=== PATIENT | male | born 1950 | race Caucasian/White ===

== ENCOUNTER → 2017-05-18 | Outpatient (CLI) | payer OTHER | END | disposition home or self-care (01) | LOC: LABWHC1 10:20 | PROVIDERS: ATTEND Physician Assistant | DX: E03.9 Hypothyroidism, unspecified (principal); B18.2 Chronic viral hepatitis C | CPT/HCPCS: 36415; 82172; 82247; 82977; 83010; 83883; 84439; 84443; 84460 ==

== ENCOUNTER 2018-03-30 07:00 | Day surgery (SDC) | payer OTHER ==
[2018-03-28 11:55] VITALS: BMI 33.5
[~2018-03-30 07:00] MED LIST: LACTATED RINGERS 1,000 ML IV SCH
[2018-03-30 08:00] VITALS: TEMP 98.4
[2018-03-30] MEDS ORDERED: LIDOCAINE 1% 20 ML VIAL (10MG/ML) FOR IV START SQ ONE (08:05)
[2018-03-30] MEDS ORDERED: PROPOFOL 10 MG/ML 20 ML VIAL IV ONE (08:42)
[2018-03-30] MEDS ORDERED: LIDOCAINE 1% INJ 10MG/ML (20 ML MDV) ONE (08:42)
--- NOTE | 2018-03-30 09:22 | P.PCN ---
Date of Procedure: 03/30/18 Procedure(s) Performed: Procedure: Colonoscopy and polypectomy. Preoperative diagnosis: Positive occult blood in the stools. Postoperative diagnosis: Multiple small polyps around the hepatic flexure area snared but no large polyps or cancer. Preparation: HalfLytely prep. Sedation: Was provided by anesthesia. Brief clinical history: The patient is a 68-year-old male who is scheduled for this evaluation because of Hemoccult-positive stools. He had a colonoscopy more than 20 years ago. The patient has no abdominal pains, change in bowel habits or overt bleeding. No upper GI complaints. Procedure: With the patient on his left lateral decubitus position and after informed consent and adequate sedation, the perianal area was inspected and it did not show any fissures or fistulas. There were no masses felt on digital rectal examination. The Olympus CFQ 160L scope was then inserted in the rectum in the usual fashion and advanced to the cecum. There were multiple small polyps in the neighborhood of the hepatic flexure which I snared and retrieved by suction but there were no large polyps or cancer. The mucosa appeared healthy. I retroflexed the endoscope in the rectum before the endoscope was withdrawn. Low-grade internal hemorrhoids were noted but there was no evidence of bleeding. The patient tolerated the procedure well. Plan: The patient was reassured. I am recommending repeat exam in 3 years. As far as the Hemoccult-positive stools, consideration can be given for an upper endoscopy if he has upper GI complaints or anemia and that can be considered in the future based on his course. He will follow up with you as planned and we would keep you updated on his progress.
[2018-03-30 09:37] VITALS: BP 158/92; PULSE 70; RESP 14
== END 2018-03-30 10:32 | disposition home or self-care (01) ==
LOC: ORWHC2ENDO 07:00
DX: D12.3 Benign neoplasm of transverse colon (principal); K64.8 Other hemorrhoids; K21.9 Gastro-esophageal reflux disease without esophagitis; I10 Essential (primary) hypertension; E07.9 Disorder of thyroid, unspecified; Z79.890 Hormone replacement therapy; Z79.899 Other long term (current) drug therapy; Z87.891 Personal history of nicotine dependence
CPT/HCPCS: 88305; 45385; J2001; J2704

== ENCOUNTER 2022-12-07 04:16 | Inpatient (IN) | payer OTHER ==
[2022-12-07 04:46] LABS: Glucose,Whole Blood 155 mg/dL (70-110)
[2022-12-07 05:10] LABS: Anisocytosis Moderate; Basophils % (A) 0 %; Eosinophils # (A) 0.1 k/uL (0-0.7); Eosinophils % (A) 1 %; HCT 39.6 % (39.0-53.0); HGB 13.1 gm/dL (13.0-17.5); Lymphocytes # (A) 0.8 k/uL (1.0-4.8); Lymphocytes % (A) 7 %; MCH 29.3 pg (25.0-35.0); MCV 88.9 fL (80.0-100.0); Mean Platelet Volume 8.2; Monocytes % (A) 9 %; Neutrophils % (A) 80 %; Platelet Count 114 k/uL (150-450); Poikilocytosis Slight; RBC 4.45 m/uL (4.30-5.90); WBC 11.2 k/uL (3.8-10.6)
[2022-12-07 05:18] LABS: INR 1.5 (<1.2); Partial Thromboplastin Time 28.3 sec (22.0-30.0); Prothrombin Time 15.4 sec (9.0-12.0)
[2022-12-07 05:24] LABS: ALT 44 U/L (4-49); AST 75 U/L (17-59); Acetaminophen <10.0 ug/mL; African American GFR (CKD) 42 (>60 ml/min/1.73 sqM); Albumin 3.9 g/dL (3.5-5.0); Alcohol <10 mg/dL; Alkaline Phosphatase 173 U/L (38-126); Anion Gap 16 mmol/L; Blood Urea Nitrogen 33 mg/dL (9-20); Calcium 9.3 mg/dL (8.4-10.2); Carbon Dioxide 11 mmol/L (22-30); Chloride 112 mmol/L (98-107); Glucose 145 mg/dL (74-99); Non-African American GFR(CKD) 36 (>60 ml/min/1.73 sqM); Potassium 4.5 mmol/L (3.5-5.1); Salicylate <1.0 mg/dL; Sodium 139 mmol/L (137-145); Total Bilirubin 6.3 mg/dL (0.2-1.3); Total Protein 9.6 g/dL (6.3-8.2)
[2022-12-07] MEDS ORDERED: LACTULOSE 20 GM/30 ML CUP PO ONE (05:54)
--- NOTE | 2022-12-07 07:04 | XR ---
EXAMINATION TYPE: XR chest 1V portable DATE OF EXAM: 12/07/2022 Comparison: None Clinical History: 72-year-old male confusion, altered mental status Findings: Heart mildly enlarged. Low lung volumes with crowded vascular markings. Mild interstitial density. No consolidation or pleural effusion. Impression: Hypoventilatory changes. Mild cardiomegaly. Interstitial prominence could reflect mild pulmonary vasc ular congestion. Clinically correlate.
--- NOTE | 2022-12-07 07:09 | CT ---
EXAMINATION TYPE: CT brain wo con DATE OF EXAM: 12/07/2022 COMPARISON: None HISTORY: 72-year-old male confusion, altered mental status TECHNIQUE: Examination was done in axial plane without intravenous contrast. Coronal and sagittal r econstructions performed. CT DLP: 1312.4 mGycm Automated exposure control for dose reduction was used. FINDINGS: There is no evidence of acute intracranial hemorrhage, acute ischemic changes, mass, mass-effect, or extra-axial fluid collection. There is no effacement of cerebral sulci or basal subarachnoid cister ns. There is no hydrocephalus. There is no midline shift. Muñoz-white matter distinction is preserv ed. Mild age-related bifrontal cerebral cortical volume loss. Mild periventricular white matter hypodensi ties; mild burden of chronic small vessel ischemic disease. Rightward nasal septal deviation. Trace mucosal thickening ethmoid air cells. Atrophy of the intraorb ital fat. Mastoid air cells well pneumatized. IMPRESSION: No acute intracranial abnormality seen. Mild bifrontal atrophy and mild changes of chronic small vess el ischemic disease.
[2022-12-07] MEDS ORDERED: NALOXONE 0.4 MG/ML 1 ML VIAL IV PRN (07:21)
--- NOTE | 2022-12-07 07:21 | ED ---
Altered Mental Status HPI - General Chief Complaint: Altered Mental Status Stated Complaint: VOMITING,ALTERED MENTAL STATUS Time Seen by Provider: 12/07/22 04:30 Source: patient, EMS Mode of arrival: EMS Limitations: no limitations - History of Present Illness Initial Comments: 72-year-old male with past medical history of liver cancer who presents to the emergency department with altered mental status. is at bedside and provides the history. States that the patient follows with an oncologist at [facility]. He was diagnosed with cancer in September. He currently takes an oral chemotherapy pill and lactulose. states that he has been having profuse diarrhea and therefore scaled back his lactulose. He is was to take 15 mL twice a day. She states that she has been giving him 9 mL twice a day for a few days. Today the patient only got 4 mL. He has been confused throughout the course of the day. No falls. He barely ate anything. No fevers. The trachea issues. No other alleviating, precipitating or modifying factors - Related Data Home Medications Medication Instructions Recorded Confirmed Benazepril [Lotensin] 10 mg PO DAILY 12/07/22 12/07/22 Furosemide [Lasix] 40 mg PO DAILY 12/07/22 12/07/22 Lactulose 10 gm PO BID 12/07/22 12/07/22 Lactulose 10 gm PO BID PRN 12/07/22 12/07/22 Lenvatinib Mesylate [Lenvima] 8 mg PO HS@199912/07/22 12/07/22 Levothyroxine Sodium [Synthroid] 125 mcg PO DAILY 12/07/22 12/07/22 Spironolactone [Aldactone] 100 mg PO DAILY 12/07/22 12/07/22 amLODIPine [Norvasc] 5 mg PO DAILY 12/07/22 12/07/22 ondansetron HCL [Zofran] 8 mg PO Q8H PRN 12/07/22 12/07/22 Allergies Allergy/AdvReac Type Severity Reaction Status Date / Time No Known Allergies Allergy Verified 12/07/22 09:46 Review of Systems ROS Statement: Those systems with pertinent positive or pertinent negative responses have been documented in the HPI. ROS Other: All systems not noted in ROS Statement are negative. Past Medical History Past Medical History: GERD/Reflux, Hypertension, Liver Disease, Thyroid Disorder Additional Past Medical History / Comment(s): hemorrhoid, hx pancreatitis, fatty tumors on arms and abdomen, hx hepatitis C (treated 2018) History of Any Multi-Drug Resistant Organisms: None Reported Past Surgical History: Cholecystectomy Additional Past Surgical History / Comment(s): liver biopsy, giselle cataracts, Past Anesthesia/Blood Transfusion Reactions: No Reported Reaction Past Psychological History: Anxiety Smoking Status: Former smoker Past Alcohol Use History: None Reported Past Drug Use History: None Reported - Past Family History Brother(s) Family Medical History: Cancer Sister(s) Family Medical History: Cancer Mother Family Medical History: Cancer General Exam Limitations: altered mental status General appearance: lethargic Head exam: Present: atraumatic, normocephalic, normal inspection Eye exam: Present: scleral icterus ENT exam: Present: mucous membranes dry Respiratory exam: Present: normal lung sounds bilaterally. Absent: respiratory distress, wheezes, rales, rhonchi, stridor Cardiovascular Exam: Present: regular rate, normal rhythm, normal heart sounds. Absent: systolic murmur, diastolic murmur, rubs, gallop, clicks GI/Abdominal exam: Present: soft, normal bowel sounds. Absent: distended, tenderness, guarding, rebound, rigid Neurological exam: Present: altered Skin exam: Present: dry Course Vital Signs 12/07/22 12/07/22 12/07/22 04:26 05:41 07:08 Temperature 97.8 F Pulse Rate 90 89 86 Pulse Rate [ Pulse Oximetery ] Respiratory 18 18 18 Rate Blood Pressure 159/93 147/81 137/76 Blood Pressure [Left Arm] O2 Sat by Pulse 98 99 98 Oximetry 12/07/22 12/07/22 12/07/22 08:00 10:40 11:37 Temperature Pulse Rate 96 89 Pulse Rate [ 92 Pulse Oximetery ] Respiratory 16 20 12 Rate Blood Pressure 149/72 143/73 Blood Pressure 142/77 [Left Arm] O2 Sat by Pulse 98 97 98 Oximetry 12/07/22 12/07/22 12/07/22 18:56 19:25 21:12 Temperature 98.8 F Pulse Rate 101 H 106 H 102 H Pulse Rate [ Pulse Oximetery ] Respiratory 24 34 H 36 H Rate Blood Pressure 132/78 134/76 123/70 Blood Pressure [Left Arm] O2 Sat by Pulse 97 96 99 Oximetry Medical Decision Making - Medical Decision Making Was pt. sent in by a medical professional or institution (, JAMES, TRAILER TRUCK DRIVER, urgent care, hospital, or group home...) When possible be specific @ -No Did you speak to anyone other than the patient for history (EMS, parent, family, police, friend...)? What history was obtained from this source @ - and EMS provide history Did you review nursing and triage notes (agree or disagree)? Why? @ -I reviewed and agree with nursing and triage notes Were old charts reviewed (outside hosp., previous admission, EMS record, old EKG, old radiological studies, urgent care reports/EKG's, group home records)? Report findings @ -No old charts were reviewed Differential Diagnosis (chest pain, altered mental status, abdominal pain women, abdominal pain men, vaginal bleeding, weakness, fever, dyspnea, syncope, headache, dizziness, GI bleed, back pain, seizure, CVA, palpatations, mental health, musculoskeletal)? @ -UTI, ICH, cerebral edema, hyperammonemia EKG interpreted by me (3pts min.). @ -Yes and demonstrates sinus rhythm with a rate of 84. LA interval 240. QRS 103. QTC of 447. No acute ST segment elevations or depressions X-rays interpreted by me (1pt min.). @ -yes, hypoventilation CT interpreted by me (1pt min.). @ -yes, no acute process U/S interpreted by me (1pt. min.). @ -None done What testing was considered but not performed or refused? (CT, X-rays, U/S, labs)? Why? @ -None What meds were considered but not given or refused? Why? @ -None Did you discuss the management of the patient with other professionals (professionals i.e. , JAMES, TRAILER TRUCK DRIVER, lab, RT, psych nurse, social media specialist, recreation aide, teacher, code enforcement officer, insurance case manager)? Give summary @ -Dr. Kan Was smoking cessation discussed for >3mins.? @ -No Was critical care preformed (if so, how long)? @ -No Were there social determinants of health that impacted care today? How? (Homelessness, low income, unemployed, alcoholism, drug addiction, transportation, low edu. Level, literacy, decrease access to med. care, long term, rehab)? @ -No Was there de-escalation of care discussed even if they declined (Discuss DNR or withdrawal of care, Hospice)? DNR status @ -Spoke with - patient requested to be DNR therefore code status is changed. Informed her that with significant hyperammonemia, patients sometimes need dialysis. She states that the patient would have never wanted that What co-morbidities impacted this encounter? (DM, HTN, Smoking, COPD, CAD, Cancer, CVA, ARF, Chemo, Hep., AIDS, mental health diagnosis, sleep apnea, morbid obesity)? @ -liver cancer Was patient admitted / discharged? Hospital course, mention meds given and route, prescriptions, significant lab abnormalities, going to OR and other pertinent info. @ -Upon arrival patient is placed in room 16. Thorough history and physical exam is performed. IV access established laboratory studies were conducted. Ammonia is 316. CT of the brain demonstrates no acute process. Chest x-ray demonstrates hypoventilatory changes. Spoke with Dr. Kan who will admit patient - transfer not necessary at this time. We did attempt to give him oral lactulose however the patient does not tolerate this well. Rectal lactulose ordered. He is awaiting a bed on the floor in stable condition Undiagnosed new problem with uncertain prognosis? @ -No Drug Therapy requiring intensive monitoring for toxicity (Heparin, Nitro, Insulin, Cardizem)? @ -No Were any procedures done? @ -No - states patient did not want to be on life support Diagnosis/symptom? @ -acute encephalopathy, acute hyperammonemia Acute, or Chronic, or Acute on Chronic? @ -acute Uncomplicated (without systemic symptoms) or Complicated (systemic symptoms)? @ -complicated Side effects of treatment? @ -diarrhea Exacerbation, Progression, or Severe Exacerbation? @ -No Poses a threat to life or bodily function? How? (Chest pain, [place], [place], pneumonia, PE, COPD, DKA, ARF, appy, cholecystitis, CVA, Diverticulitis, Homicidal, Suicidal, threat to staff... and all critical care pts) @ -yes severe hyperammonemia leading to encephalopathy - Lab Data Result diagrams: 12/08/22 06:54 12/08/22 06:54 Lab Results 12/07/22 12/07/22 12/07/22 Range/Units 04:44 04:55 04:55 WBC 11.2 H (3.8-10.6) k/uL RBC 4.45 (4.30-5.90) m/uL Hgb 13.1 (13.0-17.5) gm/dL Hct 39.6 (39.0-53.0) % MCV 88.9 (80.0-100.0) fL MCH 29.3 (25.0-35.0) pg MCHC 33.0 (31.0-37.0) g/dL RDW 20.0 H (11.5-15.5) % Plt Count 114 L (150-450) k/uL MPV 8.2 Neutrophils % 80 % Lymphocytes % 7 % Monocytes % 9 % Eosinophils % 1 % Basophils % 0 % Neutrophils # 9.0 H (1.3-7.7) k/uL Lymphocytes # 0.8 L (1.0-4.8) k/uL Monocytes # 1.0 (0-1.0) k/uL Eosinophils # 0.1 (0-0.7) k/uL Basophils # 0.0 (0-0.2) k/uL Poikilocytosis Slight Anisocytosis Moderate PT 15.4 H (9.0-12.0) sec INR 1.5 H (<1.2) APTT 28.3 (22.0-30.0) sec Sodium (137-145) mmol/L Potassium (3.5-5.1) mmol/L Chloride (98-107) mmol/L Carbon Dioxide (22-30) mmol/L Anion Gap mmol/L BUN (9-20) mg/dL Creatinine (0.66-1.25) mg/dL Est GFR (CKD-EPI)AfAm (>60 ml/min/1.73 sqM) Est GFR (CKD-EPI)NonAf (>60 ml/min/1.73 sqM) Glucose (74-99) mg/dL POC Glucose (mg/dL) 155 H (70-110) mg/dL POC Glu Gastroenterology Technician ID Calcium (8.4-10.2) mg/dL Total Bilirubin (0.2-1.3) mg/dL AST (17-59) U/L ALT (4-49) U/L Alkaline Phosphatase (38-126) U/L Ammonia (<30) umol/L Troponin I (0.000-0.034) ng/mL Total Protein (6.3-8.2) g/dL Albumin (3.5-5.0) g/dL Salicylates mg/dL Acetaminophen ug/mL Serum Alcohol mg/dL 12/07/22 12/07/22 12/07/22 Range/Units 04:55 04:55 04:55 WBC (3.8-10.6) k/uL RBC (4.30-5.90) m/uL Hgb (13.0-17.5) gm/dL Hct (39.0-53.0) % MCV (80.0-100.0) fL MCH (25.0-35.0) pg MCHC (31.0-37.0) g/dL RDW (11.5-15.5) % Plt Count (150-450) k/uL MPV Neutrophils % % Lymphocytes % % Monocytes % % Eosinophils % % Basophils % % Neutrophils # (1.3-7.7) k/uL Lymphocytes # (1.0-4.8) k/uL Monocytes # (0-1.0) k/uL Eosinophils # (0-0.7) k/uL Basophils # (0-0.2) k/uL Poikilocytosis Anisocytosis PT (9.0-12.0) sec INR (<1.2) APTT (22.0-30.0) sec Sodium 139 (137-145) mmol/L Potassium 4.5 (3.5-5.1) mmol/L Chloride 112 H (98-107) mmol/L Carbon Dioxide 11 L (22-30) mmol/L Anion Gap 16 mmol/L BUN 33 H (9-20) mg/dL Creatinine 1.82 H (0.66-1.25) mg/dL Est GFR (CKD-EPI)AfAm 42 (>60 ml/min/1.73 sqM) Est GFR (CKD-EPI)NonAf 36 (>60 ml/min/1.73 sqM) Glucose 145 H (74-99) mg/dL POC Glucose (mg/dL) (70-110) mg/dL POC Glu Gastroenterology Technician ID Calcium 9.3 (8.4-10.2) mg/dL Total Bilirubin 6.3 H (0.2-1.3) mg/dL AST 75 H (17-59) U/L ALT 44 (4-49) U/L Alkaline Phosphatase 173 H (38-126) U/L Ammonia 316 H (<30) umol/L Troponin I <0.012 (0.000-0.034) ng/mL Total Protein 9.6 H (6.3-8.2) g/dL Albumin 3.9 (3.5-5.0) g/dL Salicylates <1.0 mg/dL Acetaminophen <10.0 ug/mL Serum Alcohol <10 mg/dL Disposition Clinical Impression: Encephalopathy acute, Hyperammonemia, Liver cancer Disposition: ADMITTED IP TO THIS [facility] Condition: Critical Is patient prescribed a controlled substance at d/c from ED?: No Time of Disposition: 07:20 Decision to Admit Reason: Admit from EC Decision Date: 12/07/22 Decision Time: 07:20
[2022-12-07 09:16] LABS: Appearance,Urine Clear (Clear); Bilirubin,Urine Negative (Negative); Blood,Urine Large (Negative); Color,Urine Orange; Glucose,Urine (UA) Negative (Negative); Hyaline Casts,Urine 1 /lpf (0-2); Ketones,Urine Trace (Negative); Leukocyte Esterase,Urine Negative (Negative); Nitrite,Urine Negative (Negative); Protein,Urine 1+ (Negative); RBC,Urine 42 /hpf (0-5); Specific Gravity,Urine 1.024 (1.001-1.035); WBC,Urine 2 /hpf (0-5)
[2022-12-07 09:23] LABS: Amphetamine Screen,Urine Not Detected (NotDetected); Barbiturate Screen,Urine Not Detected (NotDetected); Benzodiazepines Screen,Urine Not Detected (NotDetected); Cocaine Screen,Urine Not Detected (NotDetected); Methadone Screen, Urine Not Detected (NotDetected); Opiate Screen,Urine Not Detected (NotDetected); Oxycodone Screen, Urine Not Detected (NotDetected); Phencyclidine Screen,Urine Not Detected (NotDetected); Tricyclic Antidepressant,Urine Not Detected (NotDetected); Urn Cannabinoid Scrn Not Detected (NotDetected)
[2022-12-07] MEDS: SODIUM CHLORIDE 0.9% 1,000 ML IV SCH ×2 (09:25→22:41)
[2022-12-07] MEDS: LACTULOSE 200 GM/300 ML (FROM 1/2 GAL JUG) RECTAL SCH ×2 (09:27→12:20)
--- NOTE | 2022-12-07 10:49 | XR ---
EXAMINATION TYPE: XR abdomen 1V DATE OF EXAM: 12/07/2022 Comparison: None Clinical History: 72-year-old male NG tube placement Findings: Imaging centered at the lower chest and upper abdomen. Prominent air distention of the stomach. NG tu be is in place. Impression: Satisfactory NG tube.
[2022-12-07] MEDS: LACTULOSE 20 GM/30 ML CUP NG-TUBE SCH ×4 (11:23→22:40)
--- NOTE | 2022-12-07 13:41 | P.HPIM ---
History of Present Illness H&P Date: 12/07/22 History of present illness; patient 72-year-old gentleman with past medical history significant for recently diagnosed liver cancer who presented to the hospital because of altered mental status. History is limited as patient is confused, is at the bedside. Patient was diagnosed with liver cancer in September, was on chemotherapy oral and lactulose. Patient stated that she cut the dose of lactulose because he was having diarrhea, however since he cut down the lactulose patient started acting confused. There was no complain of any fever or chills at home. No current nausea or vomiting. Because of his confusion patient was brought to the ER. Initial lab work done in the ER showed WBC 11.2, hemoglobin 13.1, platelet count 114, INR 1.5, sodium 139, potassium 4.5, BUN 33, creatinine 1.82, AST 75, bilirubin 6.3 CT brain negative for any acute intrarenal process. Patient was admitted to internal medicine service REVIEW OF SYSTEMS: Review of systems cannot be obtained as patient is encephalopathic PHYSICAL EXAMINATION: GENERAL: The patient is encephalopathic, not in any acute distress. Well developed, well nourished. HEENT: Pupils are round and equally reacting to light. EOMI. No scleral icterus. No conjunctival pallor. Normocephalic, atraumatic. No pharyngeal erythema. No thyromegaly. CARDIOVASCULAR: S1 and S2 present. No murmurs, rubs, or gallops. PULMONARY: Coarse breath sounds bilaterally, no wheezing or crackles. ABDOMEN: Soft, nontender, nondistended, normoactive bowel sounds. No palpable organomegaly. MUSCULOSKELETAL: No joint swelling or deformity. EXTREMITIES: No cyanosis, clubbing, or pedal edema. NEUROLOGICAL: Gross neurological examination did not reveal any focal deficits. SKIN: No rashes. Assessment and plan Acute metabolic encephalopathy DELANEY Thrombocytopenia Hyperammonemia Elevated LFTs Liver cancer Monitor vital signs Monitor CBC Monitor CMP Aspiration precautions NG tube placed, continue lactulose per NG Continue IV fluids Monitor LFTs Ordered an abdominal ultrasound Ordered ultrasound of kidneys recheck ammonia levels Oncology consulted Consult nephrology Discussed with patient in detail, explained to her his poor prognosis, was to talk to palliative care and hospice CODE STATUS DO NOT RESUSCITATE Past Medical History Past Medical History: GERD/Reflux, Hypertension, Liver Disease, Thyroid Disorder Additional Past Medical History / Comment(s): hemorrhoid, hx pancreatitis, fatty tumors on arms and abdomen, hx hepatitis C (treated 2017) History of Any Multi-Drug Resistant Organisms: None Reported Past Surgical History: Cholecystectomy Additional Past Surgical History / Comment(s): liver biopsy, giselle cataracts, Past Anesthesia/Blood Transfusion Reactions: No Reported Reaction Past Psychological History: Anxiety Smoking Status: Former smoker Past Alcohol Use History: None Reported Past Drug Use History: None Reported - Past Family History Brother(s) Family Medical History: Cancer Sister(s) Family Medical History: Cancer Mother Family Medical History: Cancer Medications and Allergies Home Medications Medication Instructions Recorded Confirmed Type Benazepril [Lotensin] 10 mg PO DAILY 12/07/22 12/07/22 History Furosemide [Lasix] 40 mg PO DAILY 12/07/22 12/07/22 History Lactulose 10 gm PO BID 12/07/22 12/07/22 History Lactulose 10 gm PO BID PRN 12/07/22 12/07/22 History Lenvatinib Mesylate [Lenvima] 8 mg PO HS@199912/07/22 12/07/22 History Levothyroxine Sodium [Synthroid] 125 mcg PO DAILY 12/07/22 12/07/22 History Spironolactone [Aldactone] 100 mg PO DAILY 12/07/22 12/07/22 History amLODIPine [Norvasc] 5 mg PO DAILY 12/07/22 12/07/22 History ondansetron HCL [Zofran] 8 mg PO Q8H PRN 12/07/22 12/07/22 History Allergies Allergy/AdvReac Type Severity Reaction Status Date / Time No Known Allergies Allergy Verified 12/07/22 09:46 Physical Exam Vitals: Vital Signs Temp Pulse Pulse Resp BP BP Pulse Ox 12/07/22 11:37 92 12 142/77 98 12/07/22 10:40 89 20 143/73 97 12/07/22 08:00 96 16 149/72 98 12/07/22 07:08 86 18 137/76 98 12/07/22 05:41 89 18 147/81 99 12/07/22 04:26 97.8 F 90 18 159/93 98 Intake and Output 12/06/22 12/07/22 12/07/22 22:59 06:59 14:59 Other: Voiding Method Indwelling Catheter Weight 100.698 kg Results CBC & Chem 7: 12/07/22 04:55 12/07/22 04:55 Labs: Abnormal Lab Results - Last 24 Hours (Table) 12/07/22 12/07/22 12/07/22 Range/Units 04:44 04:55 04:55 WBC 11.2 H (3.8-10.6) k/uL RDW 20.0 H (11.5-15.5) % Plt Count 114 L (150-450) k/uL Neutrophils # 9.0 H (1.3-7.7) k/uL Lymphocytes # 0.8 L (1.0-4.8) k/uL PT 15.4 H (9.0-12.0) sec INR 1.5 H (<1.2) Chloride (98-107) mmol/L Carbon Dioxide (22-30) mmol/L BUN (9-20) mg/dL Creatinine (0.66-1.25) mg/dL Glucose (74-99) mg/dL POC Glucose (mg/dL) 155 H (70-110) mg/dL Total Bilirubin (0.2-1.3) mg/dL AST (17-59) U/L Alkaline Phosphatase (38-126) U/L Ammonia (<30) umol/L Total Protein (6.3-8.2) g/dL Urine Protein (Negative) Urine Ketones (Negative) Urine Blood (Negative) Urine RBC (0-5) /hpf 12/07/22 12/07/22 12/07/22 Range/Units 04:55 04:55 09:00 WBC (3.8-10.6) k/uL RDW (11.5-15.5) % Plt Count (150-450) k/uL Neutrophils # (1.3-7.7) k/uL Lymphocytes # (1.0-4.8) k/uL PT (9.0-12.0) sec INR (<1.2) Chloride 112 H (98-107) mmol/L Carbon Dioxide 11 L (22-30) mmol/L BUN 33 H (9-20) mg/dL Creatinine 1.82 H (0.66-1.25) mg/dL Glucose 145 H (74-99) mg/dL POC Glucose (mg/dL) (70-110) mg/dL Total Bilirubin 6.3 H (0.2-1.3) mg/dL AST 75 H (17-59) U/L Alkaline Phosphatase 173 H (38-126) U/L Ammonia 316 H (<30) umol/L Total Protein 9.6 H (6.3-8.2) g/dL Urine Protein 1+ H (Negative) Urine Ketones Trace H (Negative) Urine Blood Large H (Negative) Urine RBC 42 H (0-5) /hpf
--- NOTE | 2022-12-07 15:24 | P.CONS ---
History of Present Illness - Reason for Consult Consult date: 12/07/22 Hx HCC Requesting physician: Vern Mcpherson - Chief Complaint acute encepaholpathy, hx hcc - History of Present Illness Patient is a 72-year-old male with a history of liver cancer. HPI is limited due to patient acute condition. Patient receives his care at [facility]. Ian ken is currently being treated with Lenvima. Patient presented to the ER for altered mental staus. Patient takes lactulose at home but due to increased diarrhea patient's has been decreasing dose. Upon admission ammonia was 316 CT head revealed no acute intracranial abnormality. Mild bifrontal atrophy and mild changes of chronic small vessel ischemic disease. Chest x-ray revealed hypoventilatory changes. Mild cardiomegaly. Interstitial prominence which could reflect mild pulmonary vascular congestion. Patient afebrile. WBC 11.2, hemoglobin 13.1, platelets 114,000. bilirubin 6.5, AST 75, ALT 44, ALP 173. UA negative for acute UTI. Review of Systems 10 point ROS is negative except as stated in the HPI Past Medical History Past Medical History: GERD/Reflux, Hypertension, Liver Disease, Thyroid Disorder Additional Past Medical History / Comment(s): hemorrhoid, hx pancreatitis, fatty tumors on arms and abdomen, hx hepatitis C (treated 2018) History of Any Multi-Drug Resistant Organisms: None Reported Past Surgical History: Cholecystectomy Additional Past Surgical History / Comment(s): liver biopsy, giselle cataracts, Past Anesthesia/Blood Transfusion Reactions: No Reported Reaction Past Psychological History: Anxiety Smoking Status: Former smoker Past Alcohol Use History: None Reported Past Drug Use History: None Reported - Past Family History Brother(s) Family Medical History: Cancer Sister(s) Family Medical History: Cancer Mother Family Medical History: Cancer Medications and Allergies Home Medications Medication Instructions Recorded Confirmed Type Benazepril [Lotensin] 10 mg PO DAILY 12/07/22 12/07/22 History Furosemide [Lasix] 40 mg PO DAILY 12/07/22 12/07/22 History Lactulose 10 gm PO BID 12/07/22 12/07/22 History Lactulose 10 gm PO BID PRN 12/07/22 12/07/22 History Lenvatinib Mesylate [Lenvima] 8 mg PO HS@199912/07/22 12/07/22 History Levothyroxine Sodium [Synthroid] 125 mcg PO DAILY 12/07/22 12/07/22 History Spironolactone [Aldactone] 100 mg PO DAILY 12/07/22 12/07/22 History amLODIPine [Norvasc] 5 mg PO DAILY 12/07/22 12/07/22 History ondansetron HCL [Zofran] 8 mg PO Q8H PRN 12/07/22 12/07/22 History Allergies Allergy/AdvReac Type Severity Reaction Status Date / Time No Known Allergies Allergy Verified 12/07/22 09:46 Physical Exam Vitals: Vital Signs Temp Pulse Pulse Resp BP BP Pulse Ox 12/07/22 11:37 92 12 142/77 98 12/07/22 10:40 89 20 143/73 97 12/07/22 08:00 96 16 149/72 98 12/07/22 07:08 86 18 137/76 98 12/07/22 05:41 89 18 147/81 99 12/07/22 04:26 97.8 F 90 18 159/93 98 Intake and Output 12/07/22 12/07/22 12/07/22 06:59 14:59 22:59 Other: Voiding Method Indwelling Catheter Weight 100.698 kg - Constitutional General appearance: average body habitus, no acute distress - EENT Eyes: anicteric sclerae, EOMI ENT: hearing grossly normal - Respiratory Respiratory: bilateral: CTA - Cardiovascular Rhythm: regular Heart sounds: normal: S1, S2 Abnormal Heart Sounds: no systolic murmur, no diastolic murmur, no rub, no S3 Gallop, no S4 Gallop, no click, no other - Gastrointestinal General gastrointestinal: no distended, soft - Integumentary Integumentary: no cyanotic, no rash - Neurologic altered mental status, A&Ox 0 - Musculoskeletal Musculoskeletal: generalized weakness Results CBC & Chem 7: 12/07/22 04:55 12/07/22 04:55 Labs: Abnormal Lab Results - Last 24 Hours (Table) 12/07/22 12/07/22 12/07/22 Range/Units 04:44 04:55 04:55 WBC 11.2 H (3.8-10.6) k/uL RDW 20.0 H (11.5-15.5) % Plt Count 114 L (150-450) k/uL Neutrophils # 9.0 H (1.3-7.7) k/uL Lymphocytes # 0.8 L (1.0-4.8) k/uL PT 15.4 H (9.0-12.0) sec INR 1.5 H (<1.2) Chloride (98-107) mmol/L Carbon Dioxide (22-30) mmol/L BUN (9-20) mg/dL Creatinine (0.66-1.25) mg/dL Glucose (74-99) mg/dL POC Glucose (mg/dL) 155 H (70-110) mg/dL Total Bilirubin (0.2-1.3) mg/dL AST (17-59) U/L Alkaline Phosphatase (38-126) U/L Ammonia (<30) umol/L Total Protein (6.3-8.2) g/dL Urine Protein (Negative) Urine Ketones (Negative) Urine Blood (Negative) Urine RBC (0-5) /hpf 12/07/22 12/07/22 12/07/22 Range/Units 04:55 04:55 09:00 WBC (3.8-10.6) k/uL RDW (11.5-15.5) % Plt Count (150-450) k/uL Neutrophils # (1.3-7.7) k/uL Lymphocytes # (1.0-4.8) k/uL PT (9.0-12.0) sec INR (<1.2) Chloride 112 H (98-107) mmol/L Carbon Dioxide 11 L (22-30) mmol/L BUN 33 H (9-20) mg/dL Creatinine 1.82 H (0.66-1.25) mg/dL Glucose 145 H (74-99) mg/dL POC Glucose (mg/dL) (70-110) mg/dL Total Bilirubin 6.3 H (0.2-1.3) mg/dL AST 75 H (17-59) U/L Alkaline Phosphatase 173 H (38-126) U/L Ammonia 316 H (<30) umol/L Total Protein 9.6 H (6.3-8.2) g/dL Urine Protein 1+ H (Negative) Urine Ketones Trace H (Negative) Urine Blood Large H (Negative) Urine RBC 42 H (0-5) /hpf Chest x-ray: report reviewed CT Scan - head: report reviewed Assessment and Plan (1) Encephalopathy acute Current Visit: Yes Status: Acute Priority: High Code(s): G93.40 - ENCEPHALOPATHY, UNSPECIFIED SNOMED Code(s): 07327143 (2) Hyperammonemia Current Visit: Yes Status: Acute Priority: High Code(s): E72.20 - DISORDER OF UREA CYCLE METABOLISM, UNSPECIFIED SNOMED Code(s): 7350235 (3) Liver cancer Current Visit: Yes Status: Acute Priority: High Code(s): C22.9 - MALIG NEOPLASM OF LIVER, NOT SPECIFIED PRIMARY OR SEC SNOMED Code(s): 41176943 Plan: Liver adenocarcinoma: -Recent history of liver cancer. Patient receives his care at [facility]. Patient is currently being treated with Lenvima. -Recommend to currently hold Lenvima until acute condition resolves. Will speak to family to get more information of care received at Acute encephalopathy/hyperammonemia: -Patient takes lactulose at home but due to increased diarrhea patient's has been decreasing dose. Upon admission ammonia was 316. Agree with lactulose QID. Would expect acute altered mental status to improve as ammonia levels returns to baseline -CT head revealed no acute intracranial abnormality. Mild bifrontal atrophy and mild changes of chronic small vessel ischemic disease. Chest x-ray revealed hypoventilatory changes. Mild cardiomegaly. Interstitial prominence which could reflect mild pulmonary vascular congestion. Patient afebrile. UA negative for acute UTI. attests: I have performed H&P and developed impression and plan of care for patient, discussed with dictator. I agree with dictated note, documented as a scribe
--- NOTE | 2022-12-07 15:38 | US ---
EXAMINATION TYPE: US abdomen complete DATE OF EXAM: 12/07/2022 COMPARISON: NONE CLINICAL INDICATION: Male, 72 years old with history of Abdominal pain, elevated LFTs; Abnormal LFT's , pt unresponsive, states history of cirrhosis with recent liver cancer diagnosis, GB removed TECHNIQUE: Multiple sonographic images of the abdomen are obtained. FINDINGS: EXAM MEASUREMENTS: Liver Length: 11.0 cm CBD: 0.7 cm Spleen: 17.7 cm Right Kidney: 10.9 x 5.5 x 4.5 cm Left Kidney: 11.5 x 4.1 x 4.7 cm TOYS INSPECTOR NOTES: Unresponsive pt with heavy breathing, difficult and limited visualization Pancreas: Obscured by bowel gas Liver: Very heterogeneous appearance. Cirrhotic contour nodularity. Small/lobulated right lobe. Taylor d lesion left lobe= 4.7 x 4.1 x 4.5 cm Gallbladder: Surgically absent Evidence for sonographic Tian's sign: No CBD: Correlate to mildly dilated, acceptable given patient's age and postcholecystectomy status. Spleen: Enlarged Right Kidney: wnl Left Kidney: wnl Upper IVC: wnl Abd Aorta: Obscured by overlying bowel gas Trace perihepatic ascites. IMPRESSION: 1. Cirrhosis. There appears to be a 4.7 cm solid mass within the left liver lobe. Hepatoma/HCC should be excluded. 2. Portal venous hypertension characterized by trace perihepatic ascites and splenomegaly at 17.7 cm.
[2022-12-07] MEDS: DEXTROSE 5%-0.45% NACL 1,000 ML IV SCH (16:15)
[2022-12-08 05:29] LABS: Glucose,Whole Blood 156 mg/dL (70-110)
[2022-12-08] MEDS: DEXTROSE 5%-0.45% NACL 1,000 ML IV SCH (05:31)
[2022-12-08 06:10] LABS: Glucose,Whole Blood 129 mg/dL (70-110)
--- NOTE | 2022-12-08 07:23 | XR ---
EXAMINATION TYPE: XR chest 1V portable DATE OF EXAM: 12/08/2022 COMPARISON: 12/07/2022 INDICATION: Dyspnea TECHNIQUE: Single frontal view of the chest is obtained. FINDINGS: The heart size is normal. The pulmonary vasculature is normal. The lungs are clear. Nasogastric tube transverses the thorax with the tip in the proximal left upper quadrant of the abdom en. This could be advanced. Large air-filled stomach is evident. IMPRESSION: 1. No acute pulmonary process. 2. Nasogastric tube with the tip in the proximal left upper quadrant of the abdomen. This could be ad vanced for better positioning.
[2022-12-08 07:46] VITALS: BP 86/47; PULSE 84; TEMP 96.4
[2022-12-08 07:59] LABS: Anisocytosis Moderate; HCT 43.7 % (39.0-53.0); HGB 13.6 gm/dL (13.0-17.5); Hypochromasia Marked; MCH 30.8 pg (25.0-35.0); MCHC 31.1 g/dL (31.0-37.0); Macrocytosis Moderate; Mean Platelet Volume 9.1; Poikilocytosis Slight; RBC 4.42 m/uL (4.30-5.90); RDW 20.5 % (11.5-15.5)
[2022-12-08 08:09] LABS: African American GFR (CKD) 13 (>60 ml/min/1.73 sqM); Blood Urea Nitrogen 43 mg/dL (9-20); Calcium 8.9 mg/dL (8.4-10.2); Chloride 113 mmol/L (98-107); Glucose 117 mg/dL (74-99); Magnesium 2.8 mg/dL (1.6-2.3); Non-African American GFR(CKD) 11 (>60 ml/min/1.73 sqM); Potassium 5.2 mmol/L (3.5-5.1); Sodium 145 mmol/L (137-145)
[2022-12-08 08:31] LABS: Carbon Dioxide <5 mmol/L (22-30)
[2022-12-08 08:36] LABS: MCV 98.9 fL (80.0-100.0); Platelet Count 187 k/uL (150-450)
[2022-12-08 08:45] VITALS: RESP 39
--- NOTE | 2022-12-08 09:27 | P.NPCON ---
History of Present Illness - Reason for Consult acute renal failure - History of Present Illness Reason for consultation: Acute kidney injury History of present illness: Patient is a 72-year-old male seen in renal consultation for acute kidney injury. Unknown as to what his baseline renal function is. Creatinine was 1.81 admission and is up to 4.7 today. Patient was diagnosed with liver cancer about 2 months ago and follows at [facility]. Family is present at bedside. Patient is quite lethargic and is resting in bed. Patient was brought to the hospital due to altered mental status. He was also having significant diarrhea and she had been giving him less her lactulose. This morning patient is noted to be severely acidotic with bicarb level of less than 5. Patient has a Powell catheter. Urine output is documented as 300 mL since admission. Ammonia level was 316 on admission and is 805 today. Chest x-ray this morning showed no acute cardiopulmonary process. Ultrasound showed no evidence of hydronephrosis. Patient is currently receiving normal saline. He was on Lasix and Aldactone outpatient which are both currently held. He was also on QUAN inhibitor which is currently held. I don't see any nonsteroidals and his home medication list. He has been taking his oral chemotherapy agent. Vital signs - hypothermic. Blood pressure low. General: Lethargic. Resting in bed. HEENT: NG tube noted. LUNGS: Scattered rhonchi. HEART: Rate and Rhythm are regular. ABDOMEN: No distention. EXTREMITITES: No edema. Past Medical History Past Medical History: GERD/Reflux, Hypertension, Liver Disease, Thyroid Disorder Additional Past Medical History / Comment(s): hemorrhoid, hx pancreatitis, fatty tumors on arms and abdomen, hx hepatitis C (treated 2018) History of Any Multi-Drug Resistant Organisms: None Reported Past Surgical History: Cholecystectomy Additional Past Surgical History / Comment(s): liver biopsy, giselle cataracts, Past Anesthesia/Blood Transfusion Reactions: No Reported Reaction Past Psychological History: Anxiety Smoking Status: Former smoker Past Alcohol Use History: None Reported Past Drug Use History: None Reported - Past Family History Brother(s) Family Medical History: Cancer Sister(s) Family Medical History: Cancer Mother Family Medical History: Cancer Medications and Allergies Home Medications Medication Instructions Recorded Confirmed Type Benazepril [Lotensin] 10 mg PO DAILY 12/07/22 12/07/22 History Furosemide [Lasix] 40 mg PO DAILY 12/07/22 12/07/22 History Lactulose 10 gm PO BID 12/07/22 12/07/22 History Lactulose 10 gm PO BID PRN 12/07/22 12/07/22 History Lenvatinib Mesylate [Lenvima] 8 mg PO HS@199912/07/22 12/07/22 History Levothyroxine Sodium [Synthroid] 125 mcg PO DAILY 12/07/22 12/07/22 History Spironolactone [Aldactone] 100 mg PO DAILY 12/07/22 12/07/22 History amLODIPine [Norvasc] 5 mg PO DAILY 12/07/22 12/07/22 History ondansetron HCL [Zofran] 8 mg PO Q8H PRN 12/07/22 12/07/22 History Allergies Allergy/AdvReac Type Severity Reaction Status Date / Time No Known Allergies Allergy Verified 12/07/22 09:46 Physical Exam Vitals: Vital Signs Temp Pulse Pulse Resp BP BP Pulse Ox 12/08/22 07:44 96.4 F L 84 39 H 86/47 92 L 12/08/22 05:13 96.9 F L 98 32 H 120/71 97 12/08/22 02:00 96.4 F L 105 H 38 H 134/75 98 12/07/22 22:54 96.7 F L 103 H 36 H 131/70 99 12/07/22 22:35 38 H 12/07/22 21:12 102 H 36 H 123/70 99 12/07/22 19:25 106 H 34 H 134/76 96 12/07/22 18:56 98.8 F 101 H 24 132/78 97 12/07/22 11:37 92 12 142/77 98 12/07/22 10:40 89 20 143/73 97 Intake and Output 12/07/22 12/08/22 12/08/22 22:59 06:59 14:59 Intake Total 200 Output Total 300 Balance -100 Intake: Intake, IV Titration 200 Amount Dextrose 5%-0.45% NaCl 1, 200 000 ml @ 75 mls/hr IV . [id number] [facility] Rx#:[id number] Output: Urine 300 Uretheral (Powell) 250 Other: Voiding Method Indwelling Catheter Results - Lab Results Most recent lab results Calcium 8.9 mg/dL (8.4-10.2) 12/08/22 06:54 Magnesium 2.8 mg/dL (1.6-2.3) H 12/08/22 06:54 12/08/22 06:54 12/08/22 06:54 Assessment and Plan Plan: Assessment: 1. Acute kidney injury secondary to ATN secondary to hypotension. Creatinine 4.77 today. Oliguric. 2. Liver cancer. Follows at [facility]. 3. Hepatic encephalopathy with ammonia level of over 800 today. 4. Severe metabolic acidosis secondary to acute kidney injury and IV fluids. Partially compensatory for hyperventilation. 5. Benign hypertension. Blood pressure currently low. Plan: Discussed case with family members at length present at bedside. Discussed risks of hyperammoniemia including encephalopathy and cerebral edema. Discussed initiating renal replacement therapy as well. At this time family has decided to proceed with comfort measures. Thank you for the consultation. Please call with any questions or concerns.
[2022-12-08 11:18] LABS: Band Neutrophils % 8 %; Lymphocytes # (M) 2.21 k/uL (1.0-4.8); Metamyelocytes # (M) 0.17 k/uL (0); Metamyelocytes % 1 %; Monocytes # (M) 0.85 k/uL (0-1.0); Myelocytes # (M) 0.17 k/uL (0); Myelocytes % 1 %; Neutrophils % (M) 74 %; Nucleated Red Blood Cells 0 /100 WBC (0-0); Total Cells Counted 200
--- NOTE | 2022-12-08 12:50 | P.DS ---
Providers Date of admission: 12/07/22 07:21 Expected date of discharge: 12/08/22 Attending physician: Nancy Kan Consults: 12/07/22 09:33 Consult Physician Urgent Consulting Provider: Mir Oliver Consult Reason/Comments: liver cancer, encephalothy Do you want consulting provider notified?: Yes 12/07/22 13:34 Consult Physician Urgent Consulting Provider: Peggy Palencia Consult Reason/Comments: delaney Do you want consulting provider notified?: Yes Primary care physician: [facility] Course: Discharge diagnoses; Acute metabolic encephalopathy DELANEY Thrombocytopenia Hyperammonemia Elevated LFTs Liver cancer Hospital course; patient 72-year-old gentleman with past medical history significant for recently diagnosed liver cancer who presented to the hospital because of altered mental status. History is limited as patient is confused, is at the bedside. Patient was diagnosed with liver cancer in September, was on chemotherapy oral and lactulose. Patient stated that she cut the dose of lactulose because he was having diarrhea, however since he cut down the lactulose patient started acting confused. There was no complain of any fever or chills at home. No current nausea or vomiting. Because of his confusion patient was brought to the ER. Initial lab work done in the ER showed WBC 11.2, hemoglobin 13.1, platelet count 114, INR 1.5, sodium 139, potassium 4.5, BUN 33, creatinine 1.82, AST 75, bilirubin 6.3 CT brain negative for any acute intrarenal process. Patient was admitted to internal medicine service 12/08. Patient seen. Patient continues to be encephalopathic, respiratory status is worsening. Ammonia levels was elevated at 805,, potassium 5.2, BUN 43, creatinine 4.77. Patient family wanted to proceed with comfort care. Patient was pronounced at 9;50 Patient Condition at Discharge: Critical Plan - Discharge Summary Discharge Rx Participant: No New Discharge Prescriptions: No Action Levothyroxine Sodium [Synthroid] 125 mcg PO DAILY Benazepril [Lotensin] 10 mg PO DAILY Lenvatinib Mesylate [Lenvima] 8 mg PO HS@2000 ondansetron HCL [Zofran] 8 mg PO Q8H PRN PRN Reason: Nausea amLODIPine [Norvasc] 5 mg PO DAILY Spironolactone [Aldactone] 100 mg PO DAILY Furosemide [Lasix] 40 mg PO DAILY Lactulose 10 gm PO BID PRN PRN Reason: Constipation Lactulose 10 gm PO BID Discharge Medication List Benazepril [Lotensin] 10 mg PO DAILY 12/07/22 [History] Furosemide [Lasix] 40 mg PO DAILY 12/07/22 [History] Lactulose 10 gm PO BID 12/07/22 [History] Lactulose 10 gm PO BID PRN 12/07/22 [History] Lenvatinib Mesylate [Lenvima] 8 mg PO HS@199912/07/22 [History] Levothyroxine Sodium [Synthroid] 125 mcg PO DAILY 12/07/22 [History] Spironolactone [Aldactone] 100 mg PO DAILY 12/07/22 [History] amLODIPine [Norvasc] 5 mg PO DAILY 12/07/22 [History] ondansetron HCL [Zofran] 8 mg PO Q8H PRN 12/07/22 [History] Follow up Appointment(s)/Referral(s): Fiot Pate MD [Primary Care Provider] - 1-2 days Discharge Disposition: - Preliminary Cause of Preliminary Cause of : Liver cancer
== END 2022-12-08 11:42 | disposition expired | DRG 435 ==
LOC: EC 04:16 → 5NMEDONC 07:21 → 3SCARD 12:14
PROVIDERS: ADMIT Internal Medicine; ATTEND Internal Medicine
PROC: 0D9670Z Drainage of Stomach with Drainage Device, Via Natural or Artificial Opening (ICD-10-PCS; principal; 2022-12-07)
DX: C22.8 Malignant neoplasm of liver, primary, unspecified as to type (principal); G93.41 Metabolic encephalopathy; N17.0 Acute kidney failure with tubular necrosis; E72.20 Disorder of urea cycle metabolism, unspecified; E87.20 Acidosis, unspecified; K76.82 Hepatic encephalopathy; D69.6 Thrombocytopenia, unspecified; I11.9 Hypertensive heart disease without heart failure; R68.0 Hypothermia, not associated with low environmental temperature; T47.3X6A Underdosing of saline and osmotic laxatives, initial encounter; I95.9 Hypotension, unspecified; Z66 Do not resuscitate; Z51.5 Encounter for palliative care; Z91.A28 Caregiver's intentional underdosing of medication regimen for other reason; Z92.21 Personal history of antineoplastic chemotherapy; Z79.899 Other long term (current) drug therapy; Z79.890 Hormone replacement therapy; Z87.891 Personal history of nicotine dependence; Z80.9 Family history of malignant neoplasm, unspecified; Z86.19 Personal history of other infectious and parasitic diseases; Z87.19 Personal history of other diseases of the digestive system
CPT/HCPCS: 36415; 43753; 51702; 70450; 71045; 74018; 76700; 80048; 80053; 80143; 80179; 80306; 80320; 81001; 82140; 83735; 84484; 85025; 85610; 85730; 93005; 96361; 96374; 99285